=== PATIENT | male | born 1970 | race Two or more races ===

== ENCOUNTER 2021-04-07 19:02 | Emergency (ER) | payer MEDICAID ==
[~2021-04-07] VITALS: Ht 160 cm; Wt 72.6 kg
[2021-04-07 19:06] VITALS: BP 137/87
--- NOTE | 2021-04-07 19:13 | NUR ---
50 Y/O M BIB PD FOR PREBOOK, PATIENT PRESENTS TO ED WITH N&V AND C/O BILATERAL LOWER EXTREMITITY PAIN. SKIN IS PINK/WARM/DRY; AAOX4 WITH EVEN AND STEADY GAIT; LUNGS CLEAR BL; HR EVEN AND REGULAR; PT DENIES ANY FEVER, CP, SOB, OR COUGH AT THIS TIME; PATIENT STATES PAIN OF 8/10 AT THIS TIME; VSS; ER MD MADE AWARE OF PT STATUS. ACCUCHECK WAS 321, ERMD MADE AWARE. PMH: DM2 NKA MED: DENIES
[2021-04-07] MEDS ORDERED: ONDANSETRON 4 MG/2 ML VIAL IVP ONE (19:20)
[2021-04-07] MEDS ORDERED: NACL 0.9% 1,000 ML IV ONE (19:20)
[2021-04-07] MEDS ORDERED: MAG SULF 2000 MG/WATER PREMIX 50 ML IV ONE (19:45)
--- NOTE | 2021-04-07 19:49 | NUR ---
PT TAKEN TO XRAY
[2021-04-07 19:51] LABS: ALBUMIN 3.4 g/dL (3.4-5.0); CARBON DIOXIDE 27.4 mmol/L (21-32); POTASSIUM 4.4 mmol/L (3.5-5.1); TOTAL BILIRUBIN 0.4 mg/dL (0.0-1.0)
--- NOTE | 2021-04-07 20:06 | NUR ---
PT MOVED TO ER BED 7
[2021-04-07 20:46] LABS: BASOPHILS % (AUTO) 0.5 % (0.0-2.0); EOSINOPHILS % (AUTO) 0.1 % (0.0-4.0); HEMATOCRIT 37.5 % (36-52); HEMOGLOBIN 12.4 g/dL (12.0-18.0); LYMPHOCYTES # (AUTO) 0.8 K/uL (2.0-11.5); LYMPHOCYTES % (AUTO) 9.3 % (20.5-51.1); MEAN CORPUSCULAR HEMOGLOBIN 29 pg (27-31); MEAN CORPUSCULAR HGB CONC 33 g/dL (33-37); MEAN CORPUSCULAR VOLUME 86.7 fL (80-94); MONOCYTES # (AUTO) 0.5 K/uL (0.8-1.0); MONOCYTES % (AUTO) 5.4 % (1.7-9.3); NEUTROPHILS # (AUTO) 7.5 K/uL (1.8-7.7); NEUTROPHILS % (AUTO) 84.7 % (42.2-75.2); PLATELET COUNT (AUTO) 265 K/uL (140-450); RED BLOOD CELL COUNT(AUTO) 4.32 MIL/uL (4.20-6.10); RED CELL DISTRIBUTION WIDTH 15.2 % (11.6-13.7); WHITE BLOOD COUNT (AUTO) 8.8 K/uL (4.8-10.8)
--- NOTE | 2021-04-07 21:25 | NUR ---
Ultrasound at bedside.
--- NOTE | 2021-04-07 22:49 | NUR ---
DR. SALMON AT BEDSIDE FOR RE-EXAM AND DISPOSITION
[2021-04-07] MEDS ORDERED: INSULIN LANTUS 100 UNITS/ML 10 ML VIAL SUBQ ONE (22:55)
[2021-04-07 23:16] VITALS: BP 128/79
--- NOTE | 2021-04-07 23:17 | NUR ---
PATIENT BIB [employer]. PATIENT EXAMINED BY DR. SALMON. PATIENT MEDICALLY CLEARED AND RELEASED IN CUSTODY IN STABLE CONDITION. ORIGINAL PRE-BOOK FORM GIVEN TO OFFICER ROBERTH.
== END 2021-04-07 23:17 ==
LOC: MED 19:02
DX: K85.90 Acute pancreatitis without necrosis or infection, unspecified (principal); R73.9 Hyperglycemia, unspecified; R11.2 Nausea with vomiting, unspecified; F41.9 Anxiety disorder, unspecified; Z02.89 Encounter for other administrative examinations
CPT/HCPCS: 36415; 73630; 76705; 80053; 83690; 84484; 85025; 93005; 96365; 96372; 96375; 99285; J1815; J2405; J3475; J7030; Q0092